=== PATIENT | female | born 1990 | race Caucasian/White ===

== ENCOUNTER 2017-08-31 08:40 | Inpatient (IN) | payer OTHER ==
[~2017-08-31] VITALS: Ht 175.3 cm; Wt 86.8 kg
[2017-08-31] MEDS: LACTATED RINGERS 1,000 ML IV SCH ×2 (09:06→09:51)
[2017-08-31] MEDS ORDERED: OXYTOCIN 30U/ 0.9% NaCL 500ML 500 ML IV ONE (09:06)
[2017-08-31] MEDS ORDERED: FENTANYL PF 100 MCG/2ML ONE (09:11)
[2017-08-31 09:18] VITALS: BP 128/72
[2017-08-31] MEDS ORDERED: NEWBORN KIT ONE (09:21)
[2017-08-31] MEDS ORDERED: FENTANYL PF 100 MCG/2ML IVPush PRN (09:30)
[2017-08-31] MEDS ORDERED: ONDANSETRON 2MG/ML, 2ML IVPush PRN (09:30)
[2017-08-31 09:46] LABS: HEMATOCRIT 43.9 % (34.6-47.8); WHITE BLOOD COUNT 22.3 x10^3/uL (3.4-10)
[2017-08-31] MEDS ORDERED: LACTATED RINGERS 1,000 ML IV SCH ×2 (09:55)
[2017-08-31] MEDS ORDERED: FENTANYL/BUPIV./NS/PF 250 ML EPIDCONT SCH ×2 (09:55)
[2017-08-31] MEDS ORDERED: BUPIVACAINE/PF 0.25% ONE (09:59)
[2017-08-31] MEDS ORDERED: LACTATED RINGERS 1,000 ML IVBOLUS PRN ×2 (10:00)
[2017-08-31] MEDS ORDERED: EPHEDRINE 50 MG/ML, 1ML IVPush PRN ×2 (10:00)
[2017-08-31] MEDS ORDERED: NALOXONE 0.4 MG/ML, 1ML IVPush PRN ×2 (10:00)
[2017-08-31 10:08] LABS: DIFF TOTAL CELLS COUNTED 100 CELL DIFF
[2017-08-31 10:10] LABS: VERIFY COUNTS? YES
[2017-08-31] MEDS ORDERED: FENTANYL/BUPIV./NS/PF 250 ML EPIDCONT ONE (10:29)
[2017-08-31] MEDS ORDERED: OXYTOCIN 30U/ 0.9% NaCL 500ML 500 ML ONE ×2 (10:33→19:09)
[2017-08-31] MEDS ORDERED: ACETAMINOPHEN 325 MG TABLET ONE (15:16)
[2017-08-31] MEDS ORDERED: ACETAMINOPHEN 325 MG TABLET PO PRN ×2 (15:30→18:30)
[2017-08-31] MEDS ORDERED: AMPICILLIN 2 GM in SODIUM CHLORIDE 0.9% 100 ML IV ONE (15:30)
[2017-08-31] MEDS ORDERED: SODIUM CITRATE/CITRIC ACID 30 ML UDC ONE (18:04)
[2017-08-31] MEDS ORDERED: METOCLOPRAMIDE 5 MG/ML, 2ML ONE (18:04)
[2017-08-31] MEDS ORDERED: ONDANSETRON 2MG/ML, 2ML IV PRN (18:30)
[2017-08-31] MEDS ORDERED: MISOPROSTOL 200 MCG TABLET PO PRN (18:30)
[2017-08-31] MEDS ORDERED: OXYcodone/APAP 5/325MG TABLET PO PRN (18:30)
[2017-08-31] MEDS: OXYTOCIN 30U/ 0.9% NaCL 500ML 500 ML IV SCH (19:11)
[2017-08-31] MEDS ORDERED: IBUPROFEN 600 MG TABLET ONE (19:15)
[2017-08-31] MEDS ORDERED: OXYcodone/APAP 5/325MG TABLET ONE (19:16)
[2017-08-31] MEDS: OXYcodone/APAP 5/325MG TABLET PO PRN (19:17)
[2017-08-31] MEDS: IBUPROFEN 600 MG TABLET PO PRN (19:17)
[2017-08-31 21:25] VITALS: BP 105/57
[2017-09-01 00:15] VITALS: BP 112/67
[2017-09-01] MEDS: LACTATED RINGERS 1,000 ML IV SCH ×3 (01:06→17:06)
[2017-09-01 03:04] LABS: HEMATOCRIT 35.6 % (34.6-47.8); HEMOGLOBIN 12.2 g/dL (11.7-16.4); WHITE BLOOD COUNT 25.5 x10^3/uL (3.4-10)
[2017-09-01 03:26] LABS: DIFF TOTAL CELLS COUNTED 100 CELL DIFF
[2017-09-01 03:27] LABS: VERIFY COUNTS? YES
[2017-09-01 04:15] VITALS: BP 106/67
[2017-09-01] MEDS: OXYTOCIN 30U/ 0.9% NaCL 500ML 500 ML IV SCH ×2 (04:27→10:20)
[2017-09-01] MEDS: OXYcodone/APAP 5/325MG TABLET PO PRN ×5 (04:58→23:34)
[2017-09-01] MEDS: IBUPROFEN 600 MG TABLET PO PRN ×4 (04:58→23:34)
[2017-09-01 07:40] VITALS: BP 100/63
[2017-09-01] MEDS: PRENATAL VIT/IRON/FA 1 EACH TABLET PO SCH ×2 (08:14→08:52)
[2017-09-01] MEDS: DOCUSATE 100 MG CAPSULE PO PRN ×3 (08:14→23:34)
[2017-09-01 12:10] VITALS: BP 115/72
[2017-09-01 16:10] VITALS: BP 114/68
[2017-09-01 19:50] VITALS: BP 116/76
[2017-09-02] MEDS ORDERED: IBUP-1223 PO (00:04)
[2017-09-02] MEDS ORDERED: OXYC-302 PO (00:05)
[2017-09-02] MEDS: OXYTOCIN 30U/ 0.9% NaCL 500ML 500 ML IV SCH ×2 (00:27→10:27)
[2017-09-02] MEDS: LACTATED RINGERS 1,000 ML IV SCH ×2 (01:06→09:06)
[2017-09-02] MEDS: IBUPROFEN 600 MG TABLET PO PRN (08:18)
[2017-09-02] MEDS: DOCUSATE 100 MG CAPSULE PO PRN (08:18)
[2017-09-02] MEDS: OXYcodone/APAP 5/325MG TABLET PO PRN (08:18)
[2017-09-02] MEDS: PRENATAL VIT/IRON/FA 1 EACH TABLET PO SCH (08:18)
[2017-09-02 08:20] VITALS: BP 113/80
== END 2017-09-02 15:10 | disposition home or self-care (01) | DRG 775 ==
LOC: LDOP 08:40 → LDIP 08:55 → 2NW 21:10
PROVIDERS: ADMIT Student in an Organized Health Care Education/Training Program; ATTEND Student in an Organized Health Care Education/Training Program
PROC: 0W8NXZZ Division of Female Perineum, External Approach (ICD-10-PCS; principal; 2017-08-31)
PROC: 10E0XZZ Delivery of Products of Conception, External Approach (ICD-10-PCS; 2017-08-31)
PROC: 3E0S3BZ Introduction of Anesthetic Agent into Epidural Space, Percutaneous Approach (ICD-10-PCS; 2017-08-31)
PROC: 00HU33Z Insertion of Infusion Device into Spinal Canal, Percutaneous Approach (ICD-10-PCS; 2017-08-31)
DX: O76 Abnormality in fetal heart rate and rhythm complicating labor and delivery (principal); Z37.0 Single live birth; Z3A.39 39 weeks gestation of pregnancy
CPT/HCPCS: 36415; 82803; 85025; 86850; 86900; J3010; J3490; J2590; J7120

== ENCOUNTER 2018-08-20 12:40 | Emergency (ER) | payer MEDICAID, OTHER ==
[~2018-08-20] VITALS: Ht 175.3 cm; Wt 63.6 kg
[~2018-08-20 12:40] MED LIST: IBUP-1223 PO; OXYC-302 PO
[2018-08-20 13:32] VITALS: BP 104/60
[2018-08-20 13:57] LABS: BASOPHILS # (AUTO) 0.05 x10^3/uL (0-0.1); BASOPHILS % (AUTO) 1 % (0-1); EOSINOPHILS # (AUTO) 0.35 x10^3/uL (0-0.4); EOSINOPHILS % (AUTO) 5 % (1-7); LYMPHOCYTES # (AUTO) 2.61 x10^3/uL (1-3.4); LYMPHOCYTES % (AUTO) 34 % (22-44); MD NO; MEAN CORPUSCULAR HEMOGLOBIN 31.6 pg (27.0-34.8); MEAN CORPUSCULAR HGB CONC 33.8 g/dL (32.4-35.8); MEAN CORPUSCULAR VOLUME 93.5 fL (80-100); MEAN PLATELET VOLUME 8.9 fL (7.4-10.4); MONOCYTES # (AUTO) 0.39 x10^3/uL (0.2-0.8); MONOCYTES % (AUTO) 5 % (2-9); NEUTROPHILS % (AUTO) 55 % (42-75); PLATELET COUNT 168 x10^3/uL (130-400); RED CELL DISTRIBUTION WIDTH 12.9 % (9.6-15.2)
[2018-08-20 14:07] LABS: ALBUMIN 3.4 g/dL (3.4-5.0); ANION GAP 8 mmol/L (5-15); CALCIUM 8.7 mg/dL (8.5-10.1); CHLORIDE 109 mmol/L (98-107)
== END 2018-08-20 15:41 | disposition home or self-care (01) ==
LOC: ED 15:15
DX: O02.1 Missed abortion (principal)
CPT/HCPCS: 36415; 76801; 80048; 82040; 84702; 85025; 86901; 96374; 96375; 99285